=== PATIENT | female | born 1955 | race Caucasian/White ===

== ENCOUNTER 2022-05-09 15:12 | Emergency (ER) | payer SELFPAY ==
[~2022-05-09] VITALS: Ht 167.6 cm; Wt 77.0 kg
[2022-05-09] MEDS: LIDOCAINE HCL/PF 1% 10 MG/ML 5ML VIAL INFIL ONE (19:41)
[2022-05-09] MEDS: CEFTRIAXONE SODIUM 1 G/VIAL IM ONE (19:41)
[2022-05-09 19:42] VITALS: BP 175/62
[2022-05-09] MEDS: IBUPROFEN 600MG TABLET PO ONE (19:42)
[2022-05-09] MEDS ORDERED: SULF1TAB48 MT (20:12)
[2022-05-09] MEDS ORDERED: IBUP-2028 MT (20:12)
[2022-05-09] MEDS ORDERED: CEPH500C2 MT (20:12)
[2022-05-09] MEDS: CEFTRIAXONE SODIUM 1 G/VIAL IM NR (21:35)
== END 2022-05-09 21:37 | disposition home or self-care (01) ==
LOC: ER 15:12
DX: L02.415 Cutaneous abscess of right lower limb (principal); L03.115 Cellulitis of right lower limb; I10 Essential (primary) hypertension; E11.9 Type 2 diabetes mellitus without complications; E03.9 Hypothyroidism, unspecified
CPT/HCPCS: 10060; 96372; 99284; J0696; J3490; Z7610

== ENCOUNTER 2022-09-10 15:47 | Inpatient (IN) | payer MEDICAID ==
[~2022-09-10] VITALS: Ht 157.5 cm; Wt 73.9 kg
[~2022-09-10 15:47] MED LIST: CEPH500C2 MT; IBUP-2028 MT; SULF1TAB48 MT
[2022-09-10] MEDS ORDERED: ONDANSETRON HCL 4MG/2ML INJ IV STA (20:32)
[2022-09-10] MEDS ORDERED: MORPHINE SULFATE 4 MG/ML CPJ (NOT FOR IM USE) IV STA (20:32)
[2022-09-10] MEDS ORDERED: LIDOCAINE HCL/EPINEPHRINE 1%-EPI 1:100,000 20 ML VIAL INFIL ONE (20:45)
[2022-09-10] MEDS ORDERED: PIPERACILLIN/TAZ 3.375G PREMIX 50 ML IV ONE (20:45)
[2022-09-10] MEDS ORDERED: LIDOCAINE HCL/PF 1% 10 MG/ML 5ML VIAL INFIL ONE (20:45)
[2022-09-10] MEDS ORDERED: VANCOMYCIN 1G PREMIX 200 ML IV ONE (20:45)
[2022-09-10] MEDS ORDERED: LIDOCAINE HCL/EPINEPHRINE 1%-EPI 1:100,000 30 ML VIAL INFIL NR (20:45)
[2022-09-10] MEDS ORDERED: SODIUM CHLORIDE 0.9% 1000ML BAG (SEPSIS BOLUS) IV ONE (20:45)
[2022-09-10 21:10] LABS: BASOPHILS % 0.2 % (0.0-2.0); EOSINOPHILS % 0.5 % (0.0-5.0); HEMATOCRIT. 28.9 % (36.0-48.0); HEMOGLOBIN. 9.6 g/dL (12.0-16.0); LYMPHOCYTES % 11.5 % (20.0-50.0); MEAN CORPUSCULAR HEMOGLOBIN 27.6 pg (28.0-32.0); MEAN CORPUSCULAR VOLUME 83.3 fL (81.0-99.0); MEAN PLATELET VOLUME 6.9 fl (7.4-10.4); MONOCYTES % 6.1 % (2.0-8.0); NEUTROPHILS % 81.7 % (40.0-76.0); PLATELET 575 x1000/uL (130-400); RED BLOOD CELL COUNT 3.47 mill/uL (4.2-5.4); RED CELL DISTRIBUTION WIDTH 13.8 % (11.6-14.6)
[2022-09-10 21:16] LABS: CHLORIDE 94 mEq/L (98-107)
[2022-09-10 21:56] LABS: CLARITY URINE CLEAR (CLEAR); COLOR URINE YELLOW (YELLOW); KETONES URINE NEGATIVE (NEGATIVE); LEUKOCYTE ESTERASE URINE 1+ (NEGATIVE); NITRITE URINE NEGATIVE (NEGATIVE); OCCULT BLOOD URINE NEGATIVE (NEGATIVE); PROTEIN URINE NEGATIVE (NEGATIVE); SPECIFIC GRAVITY URINE 1.016 (1.005-1.030); UROBILINOGEN URINE 0.2 E.U./dL (0.2-1.0)
[2022-09-11] MEDS ORDERED: DIPHENHYDRAMINE 50MG/ML VIAL IV PRN (01:45)
[2022-09-11] MEDS ORDERED: IPRATROPIUM/ALBUTEROL 0.5-3(2.5)MG/3ML NEB HHN PRN (01:45)
[2022-09-11] MEDS ORDERED: CLONIDINE 0.1MG TABLET PO PRN (01:45)
[2022-09-11] MEDS ORDERED: ONDANSETRON HCL 4MG/2ML INJ IV PRN (01:45)
[2022-09-11] MEDS ORDERED: NALOXONE HCL 0.4MG/ML VIAL IV PRN (02:30)
[2022-09-11] MEDS: ACETAMINOPHEN 325MG TABLET PO PRN (02:46)
[2022-09-11] MEDS: PIPERACILLIN/TAZOBACTAM 3.375 G in DEXTROSE 5% WATER 50 ML IV SCH ×3 (06:33→23:15)
[2022-09-11] MEDS: MORPHINE SULFATE 2 MG/ML CPJ (NOT FOR IM USE) IV PRN ×4 (06:42→22:02)
[2022-09-11] MEDS ORDERED: DEXTROSE 50% WATER 50ML SYRINGE IV PRN (08:00)
[2022-09-11] MEDS ORDERED: VANCOMYCIN 750MG PREMIX 150 ML IV SCH (11:00)
[2022-09-11] MEDS: INSULIN LISPRO 100 UNITS/ML SUBCUT SCH ×3 (12:00→21:52)
[2022-09-11] MEDS: BLOOD SUGAR DIAGNOSTIC STRIP TEST SCH ×3 (12:38→21:44)
[2022-09-11] MEDS: VANCOMYCIN 750MG PREMIX 150 ML IV SCH (13:35)
[2022-09-11] MEDS ORDERED: LIDOCAINE HCL/PF 1% 10 MG/ML 5ML VIAL INFIL ONE (19:15)
[2022-09-11] MEDS ORDERED: LIDOCAINE HCL/EPINEPHRINE 1%-EPI 1:100,000 20 ML VIAL INFIL ONE (19:15)
[2022-09-12 00:45] VITALS: BP 142/60
[2022-09-12] MEDS: MORPHINE SULFATE 2 MG/ML CPJ (NOT FOR IM USE) IV PRN ×4 (02:30→23:46)
[2022-09-12 04:00] VITALS: BP 133/53
[2022-09-12] MEDS: VANCOMYCIN 750MG PREMIX 150 ML IV SCH ×2 (05:39→23:51)
[2022-09-12] MEDS: PIPERACILLIN/TAZOBACTAM 3.375 G in DEXTROSE 5% WATER 50 ML IV SCH ×3 (06:00→21:38)
[2022-09-12] MEDS: BLOOD SUGAR DIAGNOSTIC STRIP TEST SCH ×4 (07:20→21:41)
[2022-09-12] MEDS: INSULIN LISPRO 100 UNITS/ML SUBCUT SCH ×4 (07:50→21:48)
[2022-09-12 08:00] VITALS: BP 145/94
[2022-09-12 08:33] LABS: BASOPHILS % 0.7 % (0.0-2.0); EOSINOPHILS % 3.8 % (0.0-5.0); HEMATOCRIT. 29.8 % (36.0-48.0); LYMPHOCYTES % 21.1 % (20.0-50.0); MEAN CORPUSCULAR HEMOGLOBIN 28.1 pg (28.0-32.0); MEAN CORPUSCULAR VOLUME 83.9 fL (81.0-99.0); MEAN PLATELET VOLUME 7.2 fl (7.4-10.4); NEUTROPHILS % 67.4 % (40.0-76.0); PLATELET 553 x1000/uL (130-400); RED BLOOD CELL COUNT 3.55 mill/uL (4.2-5.4); RED CELL DISTRIBUTION WIDTH 14.1 % (11.6-14.6)
[2022-09-12 09:27] LABS: CHLORIDE 98 mEq/L (98-107)
[2022-09-12 12:00] VITALS: BP 133/58
[2022-09-12 16:00] VITALS: BP 145/50
[2022-09-12 20:00] VITALS: BP 156/61
[2022-09-13] VITALS: BP 103/67
[2022-09-13] MEDS: ACETAMINOPHEN 325MG TABLET PO PRN (02:49)
[2022-09-13 04:00] VITALS: BP 103/67
[2022-09-13] MEDS: MORPHINE SULFATE 2 MG/ML CPJ (NOT FOR IM USE) IV PRN (05:00)
[2022-09-13] MEDS: PIPERACILLIN/TAZOBACTAM 3.375 G in DEXTROSE 5% WATER 50 ML IV SCH (05:00)
[2022-09-13] MEDS: INSULIN LISPRO 100 UNITS/ML SUBCUT SCH (07:50)
[2022-09-13 08:00] VITALS: BP 114/69
[2022-09-13] MEDS: BLOOD SUGAR DIAGNOSTIC STRIP TEST SCH (08:18)
[2022-09-13 09:12] LABS: BASOPHILS % 1.1 % (0.0-2.0); EOSINOPHILS % 4.2 % (0.0-5.0); HEMATOCRIT. 30.8 % (36.0-48.0); HEMOGLOBIN. 10.2 g/dL (12.0-16.0); LYMPHOCYTES % 22.3 % (20.0-50.0); MEAN CORPUSCULAR HEMOGLOBIN 27.6 pg (28.0-32.0); MEAN CORPUSCULAR VOLUME 83.6 fL (81.0-99.0); MEAN PLATELET VOLUME 7.2 fl (7.4-10.4); MONOCYTES % 5.2 % (2.0-8.0); NEUTROPHILS % 67.2 % (40.0-76.0); PLATELET 617 x1000/uL (130-400); RED BLOOD CELL COUNT 3.69 mill/uL (4.2-5.4); RED CELL DISTRIBUTION WIDTH 13.9 % (11.6-14.6)
[2022-09-13 09:34] LABS: CHLORIDE 103 mEq/L (98-107)
[2022-09-13] MEDS ORDERED: SULF1TAB48 MT (13:47)
[2022-09-13] MEDS ORDERED: LEVO750T68 MT (13:47)
[2022-09-22] MEDS ORDERED: METF-415 MT (11:46)
[2022-09-22] MEDS ORDERED: ATOR10TA MT (11:46)
[2022-09-22] MEDS ORDERED: LEVO25TA2 MT (11:46)
== END 2022-09-13 11:11 | disposition home health service (06) | DRG 710 ==
LOC: ER 16:05 → MICUSO 09-11 00:28 → EDBEDREQ 09-11 00:31 → 6EST 09-12 01:31
PROVIDERS: ADMIT Family Medicine Adult Medicine; ATTEND Family Medicine Adult Medicine
PROC: 0J980ZZ Drainage of Abdomen Subcutaneous Tissue and Fascia, Open Approach (ICD-10-PCS; principal; 2022-09-12)
DX: A41.9 Sepsis, unspecified organism (principal); E44.1 Mild protein-calorie malnutrition; L02.211 Cutaneous abscess of abdominal wall; E87.1 Hypo-osmolality and hyponatremia; E11.9 Type 2 diabetes mellitus without complications; E03.9 Hypothyroidism, unspecified; I10 Essential (primary) hypertension; E78.00 Pure hypercholesterolemia, unspecified; E78.5 Hyperlipidemia, unspecified; Z79.899 Other long term (current) drug therapy
CPT/HCPCS: 36415; 71045; 74177; 80048; 80053; 81003; 82962; 83036; 83605; 84145; 85025; 87070; 93005; 93970; 99285; C1893; J1815; J2270; J2405; J2543; J3370; J3490; J7030; J7060